=== PATIENT | male | born 1985 | race Caucasian/White ===

== ENCOUNTER 2019-04-28 17:06 | Emergency (ER) | payer SELFPAY ==
[~2019-04-28] VITALS: Ht 190.5 cm; Wt 88.0 kg
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
[2019-04-28] MEDS ORDERED: HYDR-3165 PO (18:00)
[2019-04-28 18:09] VITALS: BP 161/88
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
== END 2019-04-28 18:03 | disposition home or self-care (01) ==
LOC: ER 17:06
DX: S22.42XA Multiple fractures of ribs, left side, initial encounter for closed fracture (principal); V89.2XXA Person injured in unspecified motor-vehicle accident, traffic, initial encounter; Y93.89 Activity, other specified; Y92.89 Other specified places as the place of occurrence of the external cause; Y99.8 Other external cause status
CPT/HCPCS: 71101; 99284